=== PATIENT | female | born 1950 | race Two or more races ===

== ENCOUNTER 2021-07-18 03:11 | Inpatient (IN) | payer MEDICARE, MEDICAID ==
[~2021-07-18] VITALS: Ht 152.4 cm; Wt 109.9 kg
[2021-07-18] MEDS ORDERED: ONDANSETRON HCL 4MG/2ML INJ IV STA (03:28)
[2021-07-18] MEDS ORDERED: OCTREOTIDE ACETATE 50 MCG/ML 1ML IV STA (03:28)
[2021-07-18] MEDS ORDERED: PANTOPRAZOLE SODIUM 40 MG/VIAL IV STA (03:28)
[2021-07-18] MEDS ORDERED: OCTREOTIDE 1,000 MCG in SODIUM CHLORIDE 0.9% 100 ML IV STA (03:28)
[2021-07-18] MEDS ORDERED: MORPHINE SULFATE 4 MG/ML CPJ (NOT FOR IM USE) IV STA (03:28)
[2021-07-18] MEDS ORDERED: SODIUM CHLORIDE 0.9% 1,000 ML IV ONE ×2 (03:30→05:15)
[2021-07-18] MEDS ORDERED: SUCCINYLCHOLINE CHLORIDE 200MG/10ML IV ONE ×2 (03:30→08:59)
[2021-07-18] MEDS ORDERED: PROPOFOL 10MG/ML 100ML 100 ML IV ONE (03:30)
[2021-07-18] MEDS ORDERED: ETOMIDATE 2MG/ML 10ML VIAL IV ONE ×2 (03:30→08:59)
[2021-07-18 04:17] LABS: HEMATOCRIT. 25.6 % (36.0-48.0); HEMOGLOBIN. 8.6 g/dL (12.0-16.0); LYMPHOCYTES % 31.1 % (20.0-50.0); MEAN CORPUSCULAR HEMOGLOBIN 31.6 pg (28.0-32.0); MEAN CORPUSCULAR VOLUME 93.8 fL (81.0-99.0); MEAN PLATELET VOLUME 10.8 fl (7.4-10.4); MONOCYTES % 8.5 % (2.0-8.0); NEUTROPHILS % 56.4 % (40.0-76.0); PLATELET 97 x1000/uL (130-400); RED BLOOD CELL COUNT 2.72 mill/uL (4.2-5.4); RED CELL DISTRIBUTION WIDTH 17.8 % (11.6-14.6)
[2021-07-18 04:27] LABS: CHLORIDE 116 mEq/L (98-107)
[2021-07-18 04:29] LABS: INR 1.4; PARTIAL THROMBOPLASTIN TIME 31.6 sec (23.4-31.0); PROTHROMBIN TIME 14.7 sec (9.6-11.0)
[2021-07-18] MEDS ORDERED: CEFTRIAXONE 1 G PREMIX 50 ML IV ONE (04:45)
[2021-07-18] MEDS ORDERED: NOREPINEPHRINE 8MG/250ML PMX 250 ML IV PRN (05:03)
[2021-07-18 05:31] LABS: BG BASE EXCESS -6.4 mmol/L (-2.0-2.0); BG CARBOXYHEMOGLOBIN 0.1 % (0.5-1.5); BG DEOXYHEMOGLOBIN 1.2 % (0.0-5.0); BG FRACTION INSPIRED OXYGEN 50; BG HCO3 ACT 18.5 mmol/L (22.0-26.0); BG METHEMOGLOBIN 0.2 % (0.0-1.5); BG OXYGEN SATURATION 98.8 % (92.0-98.5); BG OXYHEMOGLOBIN 98.5 % (94.0-97.0); BG PCO2 34.2 mmHg (35.0-45.0); BG PH 7.352 (7.350-7.450); BG PO2 231.6 mmHg (75.0-100.0); BG SAMPLE SITE RIGHT RADIAL; BG TOTAL HEMOGLOBIN 7.7 g/dL (12.0-18.0); BG VENT MODE VENT - AC
[2021-07-18] MEDS ORDERED: PROPOFOL 10MG/ML 100ML 100 ML IV PRN (08:00)
[2021-07-18] MEDS ORDERED: OCTREOTIDE 1,000 MCG in SODIUM CHLORIDE 0.9% 100 ML IV PRN (23:30)
[2021-07-18 23:48] LABS: HEMOGLOBIN. 10.2 g/dL (12.0-16.0)
[2021-07-19 00:13] LABS: BASOPHILS % 1.2 % (0.0-2.0); HEMATOCRIT. 28.5 % (36.0-48.0); LYMPHOCYTES % 17.7 % (20.0-50.0); MEAN CORPUSCULAR HEMOGLOBIN 31.1 pg (28.0-32.0); MEAN CORPUSCULAR VOLUME 86.5 fL (81.0-99.0); MEAN PLATELET VOLUME 9.6 fl (7.4-10.4); MONOCYTES % 11.3 % (2.0-8.0); NEUTROPHILS % 65.8 % (40.0-76.0); PLATELET 110 x1000/uL (130-400); RED BLOOD CELL COUNT 3.29 mill/uL (4.2-5.4); RED CELL DISTRIBUTION WIDTH 22.9 % (11.6-14.6)
[2021-07-19] MEDS: PANTOPRAZOLE 80 MG in SODIUM CHLORIDE 0.9% 100 ML IV SCH ×3 (01:17→15:33)
[2021-07-19] MEDS: PROPOFOL 10 MG/ML 100 ML IV PRN ×3 (04:10→22:20)
[2021-07-19 04:44] LABS: PLATELET ESTIMATE SLIGHTLY DECREASED
[2021-07-19] MEDS ORDERED: MAGNESIUM/ALUMINUM HYDROXIDE/SIMETHICONE 30ML UDC PO PRN (09:45)
[2021-07-19] MEDS ORDERED: HYDROCODONE/ACETAMINOPHEN 5/325MG TABLET PO PRN (09:45)
[2021-07-19] MEDS ORDERED: ONDANSETRON HCL 4MG/2ML INJ IV PRN (09:45)
[2021-07-19] MEDS ORDERED: NALOXONE HCL 0.4MG/ML VIAL IV PRN (09:45)
[2021-07-19] MEDS ORDERED: ACETAMINOPHEN 325MG TABLET PO PRN (09:45)
[2021-07-19] MEDS ORDERED: CLONIDINE 0.1MG TABLET PO PRN (09:45)
[2021-07-19 12:05] LABS: HEMATOCRIT 27.5 % (36.0-48.0); HEMOGLOBIN 9.7 g/dL (12.0-16.0); MEAN CORPUSCULAR HEMOGLOBIN 30.8 pg (28.0-32.0); MEAN CORPUSCULAR VOLUME 87.9 fL (81.0-99.0); PLATELET 106 x1000/uL (130-400); RED BLOOD CELL COUNT 3.13 mill/uL (4.2-5.4); RED CELL DISTRIBUTION WIDTH 22.1 % (11.6-14.6)
[2021-07-19 12:19] LABS: TOTAL IRON BINDING CAPACITY 237 ug/dL (250-450)
[2021-07-19 12:46] LABS: HEPATITIS B SURFACE ANTIGEN NEGATIVE
[2021-07-19] MEDS: LACTULOSE 20G/30ML UDC NG SCH ×2 (14:00→22:45)
[2021-07-19] MEDS ORDERED: METOCLOPRAMIDE HCL 10MG/2ML VIAL IV SCH (14:15)
[2021-07-19] MEDS ORDERED: PHYTONADIONE 10MG/ML AMP SUBCUT NR (14:15)
[2021-07-19] MEDS ORDERED: SODIUM CHLORIDE 0.9% 1,000 ML IV SCH (14:45)
[2021-07-19] MEDS ORDERED: THIAMINE HCL 100 MG/1 ML 2ML VIAL IM NR (15:00)
[2021-07-19] MEDS: DEXT 5%/0.45% NACL 1000ML 1,000 ML IV SCH (15:02)
[2021-07-19 15:13] LABS: BG BASE EXCESS -5.6 mmol/L (-2.0-2.0); BG CARBOXYHEMOGLOBIN 0.3 % (0.5-1.5); BG DEOXYHEMOGLOBIN 1.7 % (0.0-5.0); BG HCO3 ACT 17.3 mmol/L (22.0-26.0); BG METHEMOGLOBIN 0.2 % (0.0-1.5); BG OXYGEN SATURATION 98.3 % (92.0-98.5); BG OXYHEMOGLOBIN 97.8 % (94.0-97.0); BG PCO2 25.9 mmHg (35.0-45.0); BG PH 7.443 (7.350-7.450); BG PO2 147.5 mmHg (75.0-100.0); BG SAMPLE SITE RIGHT RADIAL; BG TOTAL HEMOGLOBIN 10.2 g/dL (12.0-18.0); BG VENT MODE VENT - AC
[2021-07-19 16:24] LABS: HEMATOCRIT 25.7 % (36.0-48.0); MEAN CORPUSCULAR VOLUME 88.2 fL (81.0-99.0); PLATELET 97 x1000/uL (130-400); RED BLOOD CELL COUNT 2.92 mill/uL (4.2-5.4); RED CELL DISTRIBUTION WIDTH 22.6 % (11.6-14.6)
[2021-07-19 16:28] LABS: CHLORIDE 117 mEq/L (98-107)
[2021-07-19] MEDS: METOCLOPRAMIDE HCL 10MG/2ML VIAL IV SCH (22:43)
[2021-07-19] MEDS: PANTOPRAZOLE SODIUM 40 MG/VIAL IV SCH (22:43)
[2021-07-20] MEDS: DEXT 5%/0.45% NACL 1000ML 1,000 ML IV SCH ×3 (00:45→21:19)
[2021-07-20 01:07] LABS: HEMOGLOBIN 8.6 g/dL (12.0-16.0); MEAN CORPUSCULAR VOLUME 90.2 fL (81.0-99.0); PLATELET 87 x1000/uL (130-400); RED BLOOD CELL COUNT 2.77 mill/uL (4.2-5.4); RED CELL DISTRIBUTION WIDTH 22.8 % (11.6-14.6)
[2021-07-20] MEDS: PROPOFOL 10 MG/ML 100 ML IV PRN (04:06)
[2021-07-20 05:14] LABS: BASOPHILS % 0.6 % (0.0-2.0); CHLORIDE 121 mEq/L (98-107); EOSINOPHILS % 0.6 % (0.0-5.0); HEMATOCRIT. 23.2 % (36.0-48.0); HEMOGLOBIN. 8.1 g/dL (12.0-16.0); LYMPHOCYTES % 14.4 % (20.0-50.0); MEAN CORPUSCULAR HEMOGLOBIN 31.3 pg (28.0-32.0); MEAN CORPUSCULAR VOLUME 89.4 fL (81.0-99.0); MEAN PLATELET VOLUME 9.7 fl (7.4-10.4); NEUTROPHILS % 73.4 % (40.0-76.0); PLATELET 85 x1000/uL (130-400); RED BLOOD CELL COUNT 2.59 mill/uL (4.2-5.4)
[2021-07-20 05:26] LABS: PHOSPHORUS 1.8 mg/dL (2.5-4.9)
[2021-07-20 05:27] LABS: HDL CHOLESTEROL 24 mg/dL (40-59); LDL CHOLESTEROL 41 mg/dL (5-100)
[2021-07-20] MEDS ORDERED: LACTULOSE 20G/30ML UDC NG SCH (05:30)
[2021-07-20 05:32] LABS: INR 1.4; PROTHROMBIN TIME 14.5 sec (9.6-11.0)
[2021-07-20 05:36] LABS: CHLORIDE 121 mEq/L (98-107)
[2021-07-20 05:43] LABS: T4 FREE 0.99 ng/dL (0.76-1.46)
[2021-07-20] MEDS: LACTULOSE 20G/30ML UDC NG SCH ×2 (06:00→14:03)
[2021-07-20] MEDS: METOCLOPRAMIDE HCL 10MG/2ML VIAL IV SCH ×4 (06:32→21:13)
[2021-07-20] MEDS ORDERED: NOREPINEPHRINE 8MG/250ML PMX 250 ML IV PRN (06:45)
[2021-07-20] MEDS ORDERED: LACTULOSE 20G/30ML UDC NG NR (07:15)
[2021-07-20] MEDS: PANTOPRAZOLE SODIUM 40 MG/VIAL IV SCH ×2 (08:16→21:13)
[2021-07-20] MEDS: OCTREOTIDE 1,000 MCG in SODIUM CHLORIDE 0.9% 100 ML IV SCH (08:17)
[2021-07-20] MEDS ORDERED: FENTANYL CITRATE/PF 1,000 MCG in SODIUM CHLORIDE 0.9% 80 ML IV PRN (08:45)
[2021-07-20] MEDS ORDERED: PROPOFOL 10MG/ML 100ML 100 ML IV PRN (08:45)
[2021-07-20] MEDS ORDERED: IPRATROPIUM/ALBUTEROL 0.5-3(2.5)MG/3ML NEB HHN PRN (08:45)
[2021-07-20 08:50] LABS: BG BASE EXCESS -4.5 mmol/L (-2.0-2.0); BG CARBOXYHEMOGLOBIN 0.6 % (0.5-1.5); BG DEOXYHEMOGLOBIN 1.5 % (0.0-5.0); BG FRACTION INSPIRED OXYGEN 40; BG HCO3 ACT 18.5 mmol/L (22.0-26.0); BG METHEMOGLOBIN 0.1 % (0.0-1.5); BG OXYGEN SATURATION 98.5 % (92.0-98.5); BG OXYHEMOGLOBIN 97.8 % (94.0-97.0); BG PCO2 26.5 mmHg (35.0-45.0); BG PH 7.461 (7.350-7.450); BG PO2 143.4 mmHg (75.0-100.0); BG SAMPLE SITE RIGHT RADIAL; BG TOTAL HEMOGLOBIN 8.6 g/dL (12.0-18.0); BG VENT MODE VENT - AC
[2021-07-20] MEDS ORDERED: FENTANYL CITRATE 2,500 MCG in SODIUM CHLORIDE 0.9% 200 ML IV PRN (09:00)
[2021-07-20] MEDS ORDERED: LEVETIRACETAM 500 MG in SODIUM CHLORIDE 0.9% 100 ML IV SCH (09:45)
[2021-07-20] MEDS: DEXT IV SCH (09:52)
[2021-07-20] MEDS: NACL IV SCH (09:52)
[2021-07-20] MEDS: THIAMINE HCL IV SCH (09:52)
[2021-07-20] MEDS: LEVETIRACETAM 500MG PREMIX 100 ML IV SCH ×2 (09:53→22:53)
[2021-07-20] MEDS ORDERED: MIDAZOLAM HCL 2 MG/2 ML VIAL ONE (10:26)
[2021-07-20] MEDS ORDERED: ROCURONIUM BROMIDE 10MG/ML VIAL 5ML IV ONE (10:26)
[2021-07-20] MEDS ORDERED: MORPHINE SULFATE 2 MG/ML CPJ (NOT FOR IM USE) IV PRN (11:00)
[2021-07-20] MEDS ORDERED: SODIUM CHLORIDE 0.9% 1,000 ML IV ONE (11:00)
[2021-07-20] MEDS ORDERED: HYDROMORPHONE HCL/PF 2MG/ML CPJ IV PRN (11:00)
[2021-07-20] MEDS: IPRATROPIUM/ALBUTEROL 0.5-3(2.5)MG/3ML NEB HHN SCH (13:00)
[2021-07-20 13:13] LABS: BG BASE EXCESS -5.1 mmol/L (-2.0-2.0); BG CARBOXYHEMOGLOBIN 0.5 % (0.5-1.5); BG DEOXYHEMOGLOBIN 2.3 % (0.0-5.0); BG FRACTION INSPIRED OXYGEN 35; BG HCO3 ACT 18.1 mmol/L (22.0-26.0); BG METHEMOGLOBIN 0.3 % (0.0-1.5); BG OXYGEN SATURATION 97.7 % (92.0-98.5); BG OXYHEMOGLOBIN 96.9 % (94.0-97.0); BG PCO2 26.3 mmHg (35.0-45.0); BG PH 7.455 (7.350-7.450); BG PO2 111.8 mmHg (75.0-100.0); BG SAMPLE SITE RIGHT RADIAL; BG TOTAL HEMOGLOBIN 7.9 g/dL (12.0-18.0); BG VENT MODE VENT - SIMV
[2021-07-20 15:21] LABS: HEMATOCRIT 21.2 % (36.0-48.0); HEMOGLOBIN 7.1 g/dL (12.0-16.0); MEAN CORPUSCULAR HEMOGLOBIN 30.6 pg (28.0-32.0); MEAN CORPUSCULAR VOLUME 90.7 fL (81.0-99.0); PLATELET 90 x1000/uL (130-400); RED BLOOD CELL COUNT 2.33 mill/uL (4.2-5.4); RED CELL DISTRIBUTION WIDTH 22.1 % (11.6-14.6)
[2021-07-20] MEDS: LACTULOSE 300 ML in WATER FOR IRRIGATION,STERILE 700 ML IR SCH (18:00)
[2021-07-20] MEDS: RIFAXIMIN 550 MG TABLET PO SCH (22:52)
[2021-07-21] VITALS (50 sets, daily range): BP systolic 88–162; BP diastolic 46–86
[2021-07-21] MEDS: PROPOFOL 10 MG/ML 100 ML IV PRN (04:11)
[2021-07-21] MEDS: METOCLOPRAMIDE HCL 10MG/2ML VIAL IV SCH ×4 (05:08→20:33)
[2021-07-21 06:26] LABS: BASOPHILS % 0.8 % (0.0-2.0); EOSINOPHILS % 1.4 % (0.0-5.0); MEAN CORPUSCULAR HEMOGLOBIN 32.5 pg (28.0-32.0); MEAN CORPUSCULAR VOLUME 95.7 fL (81.0-99.0); MEAN PLATELET VOLUME 10.5 fl (7.4-10.4); MONOCYTES % 8.9 % (2.0-8.0); NEUTROPHILS % 78.9 % (40.0-76.0); PLATELET 74 x1000/uL (130-400); RED BLOOD CELL COUNT 2.14 mill/uL (4.2-5.4); RED CELL DISTRIBUTION WIDTH 22.9 % (11.6-14.6)
[2021-07-21 06:32] LABS: HEMATOCRIT. 20.5 % (36.0-48.0); HEMOGLOBIN. 6.9 g/dL (12.0-16.0)
[2021-07-21 06:37] LABS: CHLORIDE 117 mEq/L (98-107)
[2021-07-21 06:46] LABS: PHOSPHORUS 1.6 mg/dL (2.5-4.9)
[2021-07-21] MEDS ORDERED: PHYTONADIONE 10MG/ML AMP IM NR (08:30)
[2021-07-21 08:43] LABS: BG BASE EXCESS -4.8 mmol/L (-2.0-2.0); BG CARBOXYHEMOGLOBIN 0.7 % (0.5-1.5); BG HCO3 ACT 18.6 mmol/L (22.0-26.0); BG METHEMOGLOBIN 1.1 % (0.0-1.5); BG OXYGEN SATURATION 96.9 % (92.0-98.5); BG OXYHEMOGLOBIN 95.2 % (94.0-97.0); BG PCO2 27.5 mmHg (35.0-45.0); BG PH 7.449 (7.350-7.450); BG PO2 103.6 mmHg (75.0-100.0); BG SAMPLE SITE RIGHT RADIAL; BG VENT MODE VENT - AC
[2021-07-21] MEDS: RIFAXIMIN 550 MG TABLET PO SCH ×2 (09:00→20:33)
[2021-07-21] MEDS: IPRATROPIUM/ALBUTEROL 0.5-3(2.5)MG/3ML NEB HHN SCH ×3 (09:00→21:05)
[2021-07-21] MEDS: DEXT 5%/0.45% NACL 1000ML 1,000 ML IV SCH ×2 (09:25→17:33)
[2021-07-21] MEDS: LEVETIRACETAM 500MG PREMIX 100 ML IV SCH ×2 (09:30→21:47)
[2021-07-21] MEDS: NACL IV SCH (09:54)
[2021-07-21] MEDS: DEXT IV SCH (09:54)
[2021-07-21] MEDS: PANTOPRAZOLE SODIUM 40 MG/VIAL IV SCH ×2 (09:54→20:33)
[2021-07-21] MEDS: THIAMINE HCL IV SCH (09:54)
[2021-07-21] MEDS ORDERED: PANT40SU PO (14:21)
[2021-07-21] MEDS ORDERED: HYDR-4001 MT (14:21)
[2021-07-21] MEDS ORDERED: PROP10TA10 MT (14:21)
[2021-07-21] MEDS ORDERED: SPIR100T5 MT (14:21)
[2021-07-21] MEDS ORDERED: FURO40TA5 MT (14:21)
[2021-07-21] MEDS ORDERED: ONDA4TAB11 PO (14:21)
[2021-07-21] MEDS ORDERED: RIFA550T MT (14:21)
[2021-07-21] MEDS ORDERED: FERR324T4 MT (14:21)
[2021-07-21 14:45] LABS: HEMATOCRIT 24.8 % (36.0-48.0); HEMOGLOBIN 8.1 g/dL (12.0-16.0)
[2021-07-21] MEDS: PROPOFOL 10MG/ML 100ML 100 ML IV PRN ×2 (15:15→20:35)
[2021-07-21] MEDS: CEFTRIAXONE 1,000 MG in DEXTROSE 5% WATER 50 ML IV SCH (15:15)
[2021-07-21] MEDS: METRONIDAZOLE 500 MG PREMIX 100 ML IV SCH ×2 (15:16→21:47)
[2021-07-21] MEDS: LACTULOSE 300 ML in WATER FOR IRRIGATION,STERILE 700 ML IR SCH (17:39)
[2021-07-21] MEDS: OCTREOTIDE 1,000 MCG in SODIUM CHLORIDE 0.9% 100 ML IV SCH (20:34)
[2021-07-21 20:58] LABS: HEMATOCRIT 22.5 % (36.0-48.0); HEMOGLOBIN 7.6 g/dL (12.0-16.0)
[2021-07-22] VITALS (102 sets, daily range): BP systolic 87–145; BP diastolic 45–89
[2021-07-22] MEDS: PROPOFOL 10MG/ML 100ML 100 ML IV PRN ×2 (00:36→05:29)
[2021-07-22] MEDS: LACTULOSE 300 ML in WATER FOR IRRIGATION,STERILE 700 ML IR SCH ×4 (01:25→17:55)
[2021-07-22] MEDS: IPRATROPIUM/ALBUTEROL 0.5-3(2.5)MG/3ML NEB HHN SCH ×4 (03:28→20:50)
[2021-07-22] MEDS: DEXT 5%/0.45% NACL 1000ML 1,000 ML IV SCH ×3 (03:30→22:45)
[2021-07-22] MEDS: METOCLOPRAMIDE HCL 10MG/2ML VIAL IV SCH ×4 (04:59→20:54)
[2021-07-22 05:46] LABS: INR 1.3; PROTHROMBIN TIME 13.9 sec (9.6-11.0)
[2021-07-22 05:50] LABS: CHLORIDE 116 mEq/L (98-107)
[2021-07-22] MEDS: METRONIDAZOLE 500 MG PREMIX 100 ML IV SCH ×3 (06:27→20:54)
[2021-07-22 06:29] LABS: BASOPHILS % 0.6 % (0.0-2.0); EOSINOPHILS % 1.7 % (0.0-5.0); HEMATOCRIT. 25.3 % (36.0-48.0); HEMOGLOBIN. 8.6 g/dL (12.0-16.0); LYMPHOCYTES % 7.2 % (20.0-50.0); MEAN CORPUSCULAR HEMOGLOBIN 31.2 pg (28.0-32.0); MEAN CORPUSCULAR VOLUME 92.5 fL (81.0-99.0); MEAN PLATELET VOLUME 9.7 fl (7.4-10.4); MONOCYTES % 7.5 % (2.0-8.0); RED BLOOD CELL COUNT 2.74 mill/uL (4.2-5.4)
[2021-07-22 06:45] LABS: PLATELET 44 x1000/uL (130-400)
[2021-07-22] MEDS: RIFAXIMIN 550 MG TABLET PO SCH ×2 (08:39→20:54)
[2021-07-22] MEDS: PANTOPRAZOLE SODIUM 40 MG/VIAL IV SCH ×2 (08:40→20:54)
[2021-07-22 09:13] LABS: BG BASE EXCESS -5.7 mmol/L (-2.0-2.0); BG CARBOXYHEMOGLOBIN 0.5 % (0.5-1.5); BG FRACTION INSPIRED OXYGEN 30; BG HCO3 ACT 18.8 mmol/L (22.0-26.0); BG METHEMOGLOBIN 0.1 % (0.0-1.5); BG OXYHEMOGLOBIN 97.4 % (94.0-97.0); BG PCO2 33.1 mmHg (35.0-45.0); BG PH 7.372 (7.350-7.450); BG PO2 116.2 mmHg (75.0-100.0); BG SAMPLE SITE RIGHT RADIAL; BG TOTAL HEMOGLOBIN 10.1 g/dL (12.0-18.0); BG VENT MODE VENT - AC
[2021-07-22] MEDS ORDERED: PROPOFOL 10MG/ML 100ML 100 ML IV PRN (09:30)
[2021-07-22] MEDS: NOREPINEPHRINE 8 MG in DEXTROSE 5% WATER 250 ML IV PRN (09:46)
[2021-07-22] MEDS: LEVETIRACETAM 500MG PREMIX 100 ML IV SCH ×2 (10:30→20:54)
[2021-07-22] MEDS: DEXT IV SCH (11:35)
[2021-07-22] MEDS: NACL IV SCH (11:35)
[2021-07-22] MEDS: THIAMINE HCL IV SCH (11:35)
[2021-07-22 11:59] LABS: PLATELET ESTIMATE MARKEDLY DECREASED
[2021-07-22 14:17] LABS: HEMATOCRIT 29.7 % (36.0-48.0); HEMOGLOBIN 9.9 g/dL (12.0-16.0)
[2021-07-22] MEDS: CEFTRIAXONE 1,000 MG in DEXTROSE 5% WATER 50 ML IV SCH (14:39)
[2021-07-22] MEDS: OCTREOTIDE 1,000 MCG in SODIUM CHLORIDE 0.9% 100 ML IV SCH (14:40)
[2021-07-22 20:08] LABS: HEMATOCRIT 27.8 % (36.0-48.0); HEMOGLOBIN 9.7 g/dL (12.0-16.0)
[2021-07-23] VITALS (86 sets, daily range): BP systolic 82–133; BP diastolic 44–68
[2021-07-23] MEDS: METOCLOPRAMIDE HCL 10MG/2ML VIAL IV SCH ×4 (03:00→20:06)
[2021-07-23] MEDS: IPRATROPIUM/ALBUTEROL 0.5-3(2.5)MG/3ML NEB HHN SCH ×4 (04:55→21:08)
[2021-07-23 05:07] LABS: HEMATOCRIT 24.4 % (36.0-48.0)
[2021-07-23] MEDS: METRONIDAZOLE 500 MG PREMIX 100 ML IV SCH ×3 (05:20→21:30)
[2021-07-23 05:48] LABS: CHLORIDE 115 mEq/L (98-107)
[2021-07-23] MEDS: LACTULOSE 300 ML in WATER FOR IRRIGATION,STERILE 700 ML IR SCH ×4 (06:00→18:00)
[2021-07-23 06:04] LABS: INR 1.3
[2021-07-23 06:21] LABS: HEMATOCRIT. 23.8 % (36.0-48.0); HEMOGLOBIN. 7.9 g/dL (12.0-16.0); MEAN CORPUSCULAR HEMOGLOBIN 30.3 pg (28.0-32.0); MEAN CORPUSCULAR VOLUME 90.7 fL (81.0-99.0); MEAN PLATELET VOLUME 10.5 fl (7.4-10.4); RED BLOOD CELL COUNT 2.62 mill/uL (4.2-5.4); RED CELL DISTRIBUTION WIDTH 19.3 % (11.6-14.6)
[2021-07-23] MEDS: OCTREOTIDE 1,000 MCG in SODIUM CHLORIDE 0.9% 100 ML IV SCH (06:26)
[2021-07-23 07:04] LABS: PLATELET 44 x1000/uL (130-400)
[2021-07-23 09:30] LABS: BG BASE EXCESS -3.9 mmol/L (-2.0-2.0); BG CARBOXYHEMOGLOBIN 1.1 % (0.5-1.5); BG DEOXYHEMOGLOBIN 1.7 % (0.0-5.0); BG FRACTION INSPIRED OXYGEN 30; BG HCO3 ACT 19.3 mmol/L (22.0-26.0); BG METHEMOGLOBIN 0.2 % (0.0-1.5); BG OXYGEN SATURATION 98.3 % (92.0-98.5); BG PCO2 28.1 mmHg (35.0-45.0); BG PH 7.454 (7.350-7.450); BG PO2 123.1 mmHg (75.0-100.0); BG SAMPLE SITE RIGHT RADIAL; BG TOTAL HEMOGLOBIN 8.4 g/dL (12.0-18.0); BG VENT MODE VENT - AC
[2021-07-23] MEDS: PANTOPRAZOLE SODIUM 40 MG/VIAL IV SCH ×2 (10:08→20:06)
[2021-07-23] MEDS: LEVETIRACETAM 500MG PREMIX 100 ML IV SCH ×2 (10:09→21:30)
[2021-07-23] MEDS: RIFAXIMIN 550 MG TABLET PO SCH ×2 (10:09→20:05)
[2021-07-23 13:34] LABS: PLATELET ESTIMATE MARKEDLY DECREASED
[2021-07-23] MEDS: CEFTRIAXONE 1,000 MG in DEXTROSE 5% WATER 50 ML IV SCH (15:30)
[2021-07-23] MEDS: DEXT IV SCH (17:36)
[2021-07-23] MEDS: THIAMINE HCL IV SCH (17:36)
[2021-07-23] MEDS: NACL IV SCH (17:36)
[2021-07-24] VITALS (89 sets, daily range): BP systolic 75–144; BP diastolic 36–70
[2021-07-24] MEDS: OCTREOTIDE 1,000 MCG in SODIUM CHLORIDE 0.9% 100 ML IV SCH ×2 (00:41→23:22)
[2021-07-24] MEDS: IPRATROPIUM/ALBUTEROL 0.5-3(2.5)MG/3ML NEB HHN SCH ×4 (01:51→20:26)
[2021-07-24] MEDS: LACTULOSE 300 ML in WATER FOR IRRIGATION,STERILE 700 ML IR SCH ×4 (02:02→18:35)
[2021-07-24] MEDS: DEXT 5%/0.45% NACL 1000ML 1,000 ML IV SCH (02:56)
[2021-07-24] MEDS: METOCLOPRAMIDE HCL 10MG/2ML VIAL IV SCH ×4 (03:17→20:46)
[2021-07-24 05:28] LABS: BASOPHILS % 0.8 % (0.0-2.0); EOSINOPHILS % 2.7 % (0.0-5.0); HEMATOCRIT. 26.1 % (36.0-48.0); HEMOGLOBIN. 9.1 g/dL (12.0-16.0); LYMPHOCYTES % 10.8 % (20.0-50.0); MEAN CORPUSCULAR HEMOGLOBIN 31.5 pg (28.0-32.0); MEAN PLATELET VOLUME 9.6 fl (7.4-10.4); MONOCYTES % 13.3 % (2.0-8.0); NEUTROPHILS % 72.4 % (40.0-76.0); RED CELL DISTRIBUTION WIDTH 19.1 % (11.6-14.6)
[2021-07-24 05:33] LABS: CHLORIDE 113 mEq/L (98-107)
[2021-07-24 05:35] LABS: INR 1.3; PROTHROMBIN TIME 13.5 sec (9.6-11.0)
[2021-07-24] MEDS: METRONIDAZOLE 500 MG PREMIX 100 ML IV SCH ×3 (05:37→21:38)
[2021-07-24 06:04] LABS: PLATELET 48 x1000/uL (130-400)
[2021-07-24] MEDS ORDERED: POTASSIUM CHLORIDE 20MEQ TABLET SR PO SCH (09:00)
[2021-07-24] MEDS: RIFAXIMIN 550 MG TABLET PO SCH ×2 (09:00→20:46)
[2021-07-24] MEDS: PANTOPRAZOLE SODIUM 40 MG/VIAL IV SCH ×2 (09:10→20:46)
[2021-07-24] MEDS: LEVETIRACETAM 500MG PREMIX 100 ML IV SCH ×2 (09:11→21:38)
[2021-07-24] MEDS ORDERED: KCL 20MEQ/100ML PREMIX 100 ML IV NR (12:30)
[2021-07-24] MEDS: DEXT IV SCH (13:00)
[2021-07-24] MEDS: THIAMINE HCL IV SCH (13:00)
[2021-07-24] MEDS: NACL IV SCH (13:00)
[2021-07-24] MEDS: CEFTRIAXONE 1,000 MG in DEXTROSE 5% WATER 50 ML IV SCH (16:23)
[2021-07-24] MEDS: NOREPINEPHRINE 8 MG in DEXTROSE 5% WATER 250 ML IV PRN (20:07)
[2021-07-25] VITALS (88 sets, daily range): BP systolic 86–134; BP diastolic 43–75
[2021-07-25] MEDS: LACTULOSE 300 ML in WATER FOR IRRIGATION,STERILE 700 ML IR SCH ×3 (00:54→12:30)
[2021-07-25] MEDS: IPRATROPIUM/ALBUTEROL 0.5-3(2.5)MG/3ML NEB HHN SCH ×4 (02:25→20:43)
[2021-07-25] MEDS: METOCLOPRAMIDE HCL 10MG/2ML VIAL IV SCH ×4 (03:19→20:16)
[2021-07-25] MEDS: METRONIDAZOLE 500 MG PREMIX 100 ML IV SCH ×3 (05:12→21:49)
[2021-07-25 05:15] LABS: BASOPHILS % 1.4 % (0.0-2.0); EOSINOPHILS % 2.9 % (0.0-5.0); HEMATOCRIT. 26.3 % (36.0-48.0); LYMPHOCYTES % 12.2 % (20.0-50.0); MEAN CORPUSCULAR HEMOGLOBIN 31.8 pg (28.0-32.0); MEAN CORPUSCULAR VOLUME 92.4 fL (81.0-99.0); MEAN PLATELET VOLUME 10.7 fl (7.4-10.4); MONOCYTES % 14.3 % (2.0-8.0); NEUTROPHILS % 69.2 % (40.0-76.0); PLATELET 58 x1000/uL (130-400); RED BLOOD CELL COUNT 2.85 mill/uL (4.2-5.4); RED CELL DISTRIBUTION WIDTH 19.8 % (11.6-14.6)
[2021-07-25 05:30] LABS: CHLORIDE 114 mEq/L (98-107)
[2021-07-25 05:32] LABS: INR 1.3; PROTHROMBIN TIME 13.5 sec (9.6-11.0)
[2021-07-25] MEDS: DEXT 5%/0.45% NACL 1000ML 1,000 ML IV SCH ×2 (07:32→20:54)
[2021-07-25] MEDS: PANTOPRAZOLE SODIUM 40 MG/VIAL IV SCH ×2 (08:16→20:16)
[2021-07-25] MEDS: RIFAXIMIN 550 MG TABLET PO SCH ×2 (08:25→20:16)
[2021-07-25] MEDS: LEVETIRACETAM 500MG PREMIX 100 ML IV SCH ×2 (10:04→21:49)
[2021-07-25 11:33] LABS: BG BASE EXCESS 5.9 mmol/L (-2.0-2.0); BG CARBOXYHEMOGLOBIN 0.2 % (0.5-1.5); BG DEOXYHEMOGLOBIN 10.8 % (0.0-5.0); BG FRACTION INSPIRED OXYGEN 30; BG HCO3 ACT 31.2 mmol/L (22.0-26.0); BG OXYGEN SATURATION 89.2 % (92.0-98.5); BG PCO2 48.8 mmHg (35.0-45.0); BG PH 7.424 (7.350-7.450); BG PO2 57.9 mmHg (75.0-100.0); BG SAMPLE SITE RIGHT RADIAL; BG TOTAL HEMOGLOBIN 10.9 g/dL (12.0-18.0); BG VENT MODE VENT - AC
[2021-07-25] MEDS: NACL IV SCH (14:40)
[2021-07-25] MEDS: THIAMINE HCL IV SCH (14:40)
[2021-07-25] MEDS: DEXT IV SCH (14:40)
[2021-07-25] MEDS: CEFTRIAXONE 1,000 MG in DEXTROSE 5% WATER 50 ML IV SCH (14:59)
[2021-07-25] MEDS: LACTULOSE 20G/30ML UDC PO SCH (18:39)
[2021-07-25] MEDS: OCTREOTIDE 1,000 MCG in SODIUM CHLORIDE 0.9% 100 ML IV SCH (19:35)
[2021-07-25] MEDS: NOREPINEPHRINE 8 MG in DEXTROSE 5% WATER 250 ML IV PRN (19:36)
[2021-07-26] VITALS (94 sets, daily range): BP systolic 94–125; BP diastolic 49–91
[2021-07-26] MEDS: LACTULOSE 20G/30ML UDC PO SCH ×3 (00:15→11:00)
[2021-07-26] MEDS: IPRATROPIUM/ALBUTEROL 0.5-3(2.5)MG/3ML NEB HHN SCH ×4 (00:47→20:09)
[2021-07-26] MEDS: METOCLOPRAMIDE HCL 10MG/2ML VIAL IV SCH ×4 (03:25→20:24)
[2021-07-26 04:57] LABS: BASOPHILS % 1.3 % (0.0-2.0); EOSINOPHILS % 1.4 % (0.0-5.0); HEMATOCRIT. 28.2 % (36.0-48.0); HEMOGLOBIN. 9.8 g/dL (12.0-16.0); LYMPHOCYTES % 9.2 % (20.0-50.0); MEAN CORPUSCULAR HEMOGLOBIN 32.6 pg (28.0-32.0); MEAN CORPUSCULAR VOLUME 93.7 fL (81.0-99.0); MEAN PLATELET VOLUME 10.9 fl (7.4-10.4); MONOCYTES % 14.6 % (2.0-8.0); NEUTROPHILS % 73.5 % (40.0-76.0); PLATELET 70 x1000/uL (130-400); RED BLOOD CELL COUNT 3.01 mill/uL (4.2-5.4); RED CELL DISTRIBUTION WIDTH 20.3 % (11.6-14.6)
[2021-07-26 05:26] LABS: CHLORIDE 111 mEq/L (98-107)
[2021-07-26 05:35] LABS: PHOSPHORUS 1.3 mg/dL (2.5-4.9)
[2021-07-26] MEDS: METRONIDAZOLE 500 MG PREMIX 100 ML IV SCH ×2 (05:43→13:10)
[2021-07-26] MEDS: PANTOPRAZOLE SODIUM 40 MG/VIAL IV SCH ×2 (08:20→20:24)
[2021-07-26] MEDS: DEXT 5%/0.45% NACL 1000ML 1,000 ML IV SCH ×2 (08:21→17:27)
[2021-07-26] MEDS: LEVETIRACETAM 500MG PREMIX 100 ML IV SCH ×2 (10:50→22:08)
[2021-07-26] MEDS: MIDODRINE HCL 5MG TABLET PO SCH ×2 (13:10→17:27)
[2021-07-26] MEDS: CEFTRIAXONE 1,000 MG in DEXTROSE 5% WATER 50 ML IV SCH (15:29)
[2021-07-26] MEDS: DEXT IV SCH (15:51)
[2021-07-26] MEDS: THIAMINE HCL IV SCH (15:51)
[2021-07-26] MEDS: NACL IV SCH (15:51)
[2021-07-26] MEDS: LACTULOSE 20G/30ML UDC NG SCH (17:27)
[2021-07-26] MEDS: OCTREOTIDE 1,000 MCG in SODIUM CHLORIDE 0.9% 100 ML IV SCH (20:24)
[2021-07-27] VITALS (96 sets, daily range): BP systolic 91–129; BP diastolic 50–73
[2021-07-27] MEDS: LACTULOSE 20G/30ML UDC NG SCH ×4 (00:05→18:13)
[2021-07-27] MEDS: IPRATROPIUM/ALBUTEROL 0.5-3(2.5)MG/3ML NEB HHN SCH ×4 (00:14→20:47)
[2021-07-27] MEDS: NOREPINEPHRINE 8 MG in DEXTROSE 5% WATER 250 ML IV PRN (01:24)
[2021-07-27] MEDS: METOCLOPRAMIDE HCL 10MG/2ML VIAL IV SCH ×4 (02:59→21:20)
[2021-07-27 05:33] LABS: CHLORIDE 112 mEq/L (98-107)
[2021-07-27 05:39] LABS: HEMATOCRIT. 27.4 % (36.0-48.0); HEMOGLOBIN. 9.4 g/dL (12.0-16.0); MEAN CORPUSCULAR HEMOGLOBIN 32.6 pg (28.0-32.0); MEAN CORPUSCULAR VOLUME 95.2 fL (81.0-99.0); MEAN PLATELET VOLUME 10.5 fl (7.4-10.4); PLATELET 66 x1000/uL (130-400); RED BLOOD CELL COUNT 2.88 mill/uL (4.2-5.4); RED CELL DISTRIBUTION WIDTH 21.1 % (11.6-14.6)
[2021-07-27] MEDS: LEVETIRACETAM 500MG PREMIX 100 ML IV SCH ×2 (09:27→21:20)
[2021-07-27] MEDS: NACL IV SCH (09:27)
[2021-07-27] MEDS: DEXT IV SCH (09:27)
[2021-07-27] MEDS: THIAMINE HCL IV SCH (09:27)
[2021-07-27] MEDS: MIDODRINE HCL 5MG TABLET PO SCH ×3 (09:28→16:32)
[2021-07-27] MEDS: PANTOPRAZOLE SODIUM 40 MG/VIAL IV SCH ×2 (09:28→21:20)
[2021-07-27 10:04] LABS: BG BASE EXCESS -6.3 mmol/L (-2.0-2.0); BG CARBOXYHEMOGLOBIN 0.6 % (0.5-1.5); BG DEOXYHEMOGLOBIN 3.5 % (0.0-5.0); BG FRACTION INSPIRED OXYGEN 30; BG HCO3 ACT 17.2 mmol/L (22.0-26.0); BG OXYGEN SATURATION 96.5 % (92.0-98.5); BG OXYHEMOGLOBIN 95.9 % (94.0-97.0); BG PCO2 27.6 mmHg (35.0-45.0); BG PH 7.413 (7.350-7.450); BG PO2 89.4 mmHg (75.0-100.0); BG SAMPLE SITE RIGHT RADIAL; BG TOTAL HEMOGLOBIN 10.1 g/dL (12.0-18.0); BG TOTAL RESPIRATORY RATE 22 b/min; BG VENT MODE VENT - AC
[2021-07-27 10:33] LABS: PLATELET ESTIMATE DECREASED
[2021-07-27] MEDS: DEXT 5%/0.45% NACL 1000ML 1,000 ML IV SCH ×2 (14:21→23:03)
[2021-07-27] MEDS ORDERED: MORPHINE SULFATE 2 MG/ML CPJ (NOT FOR IM USE) IV PRN (16:15)
[2021-07-27] MEDS ORDERED: NALOXONE HCL 0.4MG/ML VIAL IV PRN (16:15)
[2021-07-27] MEDS: OCTREOTIDE 1,000 MCG in SODIUM CHLORIDE 0.9% 100 ML IV SCH (19:45)
[2021-07-28] VITALS (52 sets, daily range): BP systolic 87–130; BP diastolic 48–66
[2021-07-28] MEDS: IPRATROPIUM/ALBUTEROL 0.5-3(2.5)MG/3ML NEB HHN SCH ×2 (00:13→08:25)
[2021-07-28] MEDS: LACTULOSE 20G/30ML UDC NG SCH ×4 (00:37→15:57)
[2021-07-28] MEDS: METOCLOPRAMIDE HCL 10MG/2ML VIAL IV SCH ×3 (03:59→14:12)
[2021-07-28 05:40] LABS: BASOPHILS % 1.4 % (0.0-2.0); EOSINOPHILS % 4.1 % (0.0-5.0); HEMATOCRIT. 28.1 % (36.0-48.0); HEMOGLOBIN. 9.7 g/dL (12.0-16.0); MEAN CORPUSCULAR HEMOGLOBIN 33.4 pg (28.0-32.0); MEAN CORPUSCULAR VOLUME 96.5 fL (81.0-99.0); MEAN PLATELET VOLUME 10.6 fl (7.4-10.4); MONOCYTES % 12.6 % (2.0-8.0); NEUTROPHILS % 66.9 % (40.0-76.0); PLATELET 76 x1000/uL (130-400); RED BLOOD CELL COUNT 2.91 mill/uL (4.2-5.4); RED CELL DISTRIBUTION WIDTH 21.3 % (11.6-14.6)
[2021-07-28 05:48] LABS: CHLORIDE 113 mEq/L (98-107)
[2021-07-28] MEDS: NOREPINEPHRINE 8 MG in DEXTROSE 5% WATER 250 ML IV PRN (06:55)
[2021-07-28] MEDS: DEXT 5%/0.45% NACL 1000ML 1,000 ML IV SCH ×2 (08:45→15:57)
[2021-07-28] MEDS: DEXT IV SCH (09:00)
[2021-07-28] MEDS: THIAMINE HCL IV SCH (09:00)
[2021-07-28] MEDS: NACL IV SCH (09:00)
[2021-07-28] MEDS: MIDODRINE HCL 5MG TABLET PO SCH ×3 (09:00→15:57)
[2021-07-28] MEDS: PANTOPRAZOLE SODIUM 40 MG/VIAL IV SCH (09:00)
[2021-07-28] MEDS: LEVETIRACETAM 500MG PREMIX 100 ML IV SCH (10:00)
[2021-07-28] MEDS: MORPHINE SULFATE 250 MG in DEXT 5% WATER 225 ML IV PRN ×3 (11:06→23:10)
[2021-07-28] MEDS: OCTREOTIDE 1,000 MCG in SODIUM CHLORIDE 0.9% 100 ML IV SCH (15:56)
[2021-07-29] VITALS: BP 92/92
[2021-07-29 04:00] VITALS: BP 106/48
== END 2021-07-29 08:00 | DRG 207 ==
LOC: ER 03:11 → MICUSO 05:20 → CVICU 07-19 07:24 → MICUSO 07-19 07:29 → 6EST 07-28 17:56
PROVIDERS: ADMIT Internal Medicine; ATTEND Internal Medicine
PROC: 5A1955Z Respiratory Ventilation, Greater than 96 Consecutive Hours (ICD-10-PCS; principal; 2021-07-18)
PROC: 06HY33Z Insertion of Infusion Device into Lower Vein, Percutaneous Approach (ICD-10-PCS; 2021-07-18)
PROC: B54BZZA Ultrasonography of Right Lower Extremity Veins, Guidance (ICD-10-PCS; 2021-07-18)
PROC: 30233N1 Transfusion of Nonautologous Red Blood Cells into Peripheral Vein, Percutaneous Approach (ICD-10-PCS; 2021-07-18)
PROC: 0BH17EZ Insertion of Endotracheal Airway into Trachea, Via Natural or Artificial Opening (ICD-10-PCS; 2021-07-18)
PROC: 30233K1 Transfusion of Nonautologous Frozen Plasma into Peripheral Vein, Percutaneous Approach (ICD-10-PCS; 2021-07-19)
PROC: 0DB78ZX Excision of Stomach, Pylorus, Via Natural or Artificial Opening Endoscopic, Diagnostic (ICD-10-PCS; 2021-07-20)
PROC: 06L38CZ Occlusion of Esophageal Vein with Extraluminal Device, Via Natural or Artificial Opening Endoscopic (ICD-10-PCS; 2021-07-20)
PROC: 30233R1 Transfusion of Nonautologous Platelets into Peripheral Vein, Percutaneous Approach (ICD-10-PCS; 2021-07-21)
PROC: 02HV33Z Insertion of Infusion Device into Superior Vena Cava, Percutaneous Approach (ICD-10-PCS; 2021-07-22)
PROC: B548ZZA Ultrasonography of Superior Vena Cava, Guidance (ICD-10-PCS; 2021-07-22)
DX: J96.00 Acute respiratory failure, unspecified whether with hypoxia or hypercapnia (principal); I85.01 Esophageal varices with bleeding; G92 Toxic encephalopathy; I63.9 Cerebral infarction, unspecified; D68.9 Coagulation defect, unspecified; E87.0 Hyperosmolality and hypernatremia; I82.412 Acute embolism and thrombosis of left femoral vein; B15.9 Hepatitis A without hepatic coma; K76.6 Portal hypertension; R57.8 Other shock; K70.30 Alcoholic cirrhosis of liver without ascites; B19.20 Unspecified viral hepatitis C without hepatic coma; D69.6 Thrombocytopenia, unspecified; I11.0 Hypertensive heart disease with heart failure; I50.9 Heart failure, unspecified; J44.9 Chronic obstructive pulmonary disease, unspecified; K29.70 Gastritis, unspecified, without bleeding; K72.90 Hepatic failure, unspecified without coma; D50.0 Iron deficiency anemia secondary to blood loss (chronic); Y90.0 Blood alcohol level of less than 20 mg/100 ml; R16.1 Splenomegaly, not elsewhere classified; Z66 Do not resuscitate; Z51.5 Encounter for palliative care; S30.820A Blister (nonthermal) of lower back and pelvis, initial encounter; X58.XXXA Exposure to other specified factors, initial encounter; K31.89 Other diseases of stomach and duodenum; G40.909 Epilepsy, unspecified, not intractable, without status epilepticus; Z20.822 Contact with and (suspected) exposure to COVID-19; K27.9 Peptic ulcer, site unspecified, unspecified as acute or chronic, without hemorrhage or perforation; K42.9 Umbilical hernia without obstruction or gangrene; K76.0 Fatty (change of) liver, not elsewhere classified; Z82.49 Family history of ischemic heart disease and other diseases of the circulatory system; Z88.0 Allergy status to penicillin; Z88.2 Allergy status to sulfonamides; Z79.891 Long term (current) use of opiate analgesic; Z79.899 Other long term (current) drug therapy; Z90.49 Acquired absence of other specified parts of digestive tract; Y93.89 Activity, other specified; Y92.89 Other specified places as the place of occurrence of the external cause; Y99.8 Other external cause status; Z86.718 Personal history of other venous thrombosis and embolism; Z95.828 Presence of other vascular implants and grafts; Z86.16 Personal history of COVID-19
CPT/HCPCS: 36415; 36600; 70551; 71045; 76700; 76937; 80048; 80053; 80061; 80076; 82040; 82140; 82375; 82805; 82962; 83036; 83540; 83550; 83605; 83735; 84100; 84134; 84439; 84443; 84478; 84484; 85014; 85018; 85025; 85027; 85049; 86705; 86709; 86803; 86850; 86900; 86920; 86927; 87340; 87426; 88305; 88312; 88313; 93005; 93306; 93970; 94002; 94003; 94640; 99291; A6261; C1725; C1769; C9113; J0330; J0696; J1953; J2250; J2270; J2354; J2405; J2704; J2765; J3010; J3411; J3430; J3480; J3490; J7030; J7040; J7050; J7060; P9016; P9017; P9021; P9034